=== PATIENT | female | born 1940 | race Caucasian/White ===

== ENCOUNTER 2023-12-08 04:20 | Emergency (ER) | payer OTHER, SELFPAY ==
[2023-12-08 04:26] VITALS: BMI 19.7
[2023-12-08 04:37] VITALS: BP 173/65
[2023-12-08 05:00] VITALS: BP 187/69
[2023-12-08 05:03] LABS: % Basophils 0.5 % (0-2); % Eosinophils 1.3 % (0-6); % Immature Granulocytes 0.4 % (0-0.5); % Lymphocytes 25.1 % (20.5-51.1); % Neutrophils 64.7 % (42.2-75.2); Absolute Eosinophils 0.1 10^3/uL (0-0.7); Absolute Lymphocytes 1.4 10^3/uL (1.2-3.4); Absolute Monocytes 0.4 10^3/uL (0.1-0.6); Absolute Neutrophils 3.6 10^3/uL (1.4-6.5); Hematocrit 35.5 % (37.0-47.0); Hemoglobin 12.8 g/dL (12.0-16.0); Mean Corp Hgb Conc. 36.1 g/dL (33.0-37.0); Mean Corpuscular Hgb 34.5 pg (27.0-31.0); Mean Corpuscular Volume 95.7 fL (81.0-99.0); Mean Platelet Volume 9.4 fL (7.4-10.4); Nucleated Red Blood Cells % 0 %; Platelet Count 313 10^3/uL (130-400); Red Blood Cell Count 3.71 10^6/uL (4.20-5.40); Red Cell Dist. Width 12.6 % (11.5-14.5); White Blood Cell Count 5.5 10^3/uL (4.8-10.8)
[2023-12-08 05:21] LABS: ALT (SGPT) 18 U/L (0-35); AST (SGOT) 34 U/L (14-36); Albumin 3.7 g/dl (3.5-5.0); Alkaline Phosphatase 96 U/L (38-126); Blood Urea Nitrogen 18 mg/dl (7-17); Calcium 9.4 mg/dl (8.4-10.2); Carbon Dioxide 20 mmol/L (22-30); Chloride 108 mmol/L (98-107); Estimated Creatinine Clearance 55 ml/min; Glucose 119 mg/dl (70-99); Potassium 3.3 mmol/L (3.5-5.1); Sodium 136 mmol/L (135-145); Total Bilirubin 0.9 mg/dl (0.2-1.3); Total Protein 6.3 g/dl (6.3-8.2); eGFR > 60.00
[2023-12-08 05:32] LABS: Troponin I < 0.012 ng/ml
[2023-12-08 05:54] LABS: Urine Albumin Negative (Neg - Trace); Urine Bilirubin Negative (Negative); Urine Character Clear (Clear); Urine Color Yellow; Urine Glucose Negative (Negative); Urine Ketone Negative (Negative); Urine Leukocyte Negative (Negative); Urine Nitrite Negative (Negative); Urine Occult Blood Negative (Negative); Urine Urobilinogen Negative (Neg - 1+)
--- NOTE | 2023-12-08 07:01 | ED.GENMED ---
History of Present Illness
General
Chief Complaint: Dizziness
Source: patient and spouse
Time Seen by Provider: 12/08/23 06:49
Travel History
Have you had any contact with someone who has COVID-19?: No
Do you have any symptoms of coronavirus? Fever > 100 degrees, chills, cough, shortness of breath, sore throat, loss of taste or smell, muscle aches, or headache?: No
History of Present Illness
History of Present Illness:
83-year-old female presents to the emergency room complaining of feeling dizzy. Patient has been having some constipation. She woke up little at night with the urge to go to the bathroom. When she got up she was feeling dizzy like she might pass
out. She never did pass out. Her lowered her to the bathroom. Patient ultimately did have a large bowel movement here in the emergency room.
Past History
Past History
ED Past Medical History: None
ED Past Surgical History: None
Social History
Tobacco: Non-smoker
Alcohol: None
Drug: None
Personal:
Living: with family
Employment: Not employed
Phy Exam
Physical Exam
Physical Exam:
General: Awake, Alert, Oriented X3. No acute distress.
Vitals: unremarkable
Head: Atraumatic
Eyes: Pupils equal, EOMI
Throat: Airway intact, no exudates, mildly dry mucosa
Neck: Trachea midline
Lungs: Clear and equal b/l
Heart: Regular rate, no murmurs
Abd: Soft, Nontender, No pulsatile mass
Neuro: Nonfocal
Skin: Warm, dry, no rash
Extremities: pulses equal b/l, no edema
Course
Orders/Labs/Results
Orders:
Orders
12/08/23 04:22
EKG [Electrocardiogram (*1)] Urgent
Reason for Study: Vertigo / Dizzy
EKG- Treatment ONCE
12/08/23 04:53
Complete Blood Count/With Diff Urgent
Comprehensive Metabolic Panel Urgent
Troponin I Urgent
12/08/23 05:30
Bladder Scan- Treatment ONCE
Straight cath- Treatment ONCE
12/08/23 05:40
Urine Reflex Culture from UA [Urinalysis Reflex To Culture] Urgent
Date Specimen was Collected: 12/08/23
Time Specimen was Collected: 05:39
12/08/23 07:00
0.9% Sodium Chloride 500 ml [Nss] 500 ml IV BOLUS
Potassium Chloride 10% Elixir [KCl Elixir] 40 meq PO NOW STA
Abnormal Lab Results
12/08/23
04:53
RBC 3.71 L 10^6/uL
(4.20-5.40)
Hct 35.5 L %
(37.0-47.0)
MCH 34.5 H pg
(27.0-31.0)
Potassium 3.3 L mmol/L
(3.5-5.1)
Chloride 108 H mmol/L
(98-107)
Carbon Dioxide 20 L mmol/L
(22-30)
BUN 18 H mg/dl
(7-17)
Glucose 119 H mg/dl
(70-99)
12/08/23 04:53
12/08/23 04:53
Vital Signs
Initial and Last Documented VS:
Initial Vital Signs
Temp Pulse Resp BP Pulse Ox
97.4 F 64 18 173/65 100
12/08/23 04:37 12/08/23 04:37 12/08/23 04:37 12/08/23 04:37 12/08/23 04:37
Last Documented Vital Signs
Temp Pulse Resp BP Pulse Ox
97.4 F 76 20 180/81 100
12/08/23 04:37 12/08/23 09:50 12/08/23 09:50 12/08/23 09:50 12/08/23 09:50
MDM/Problems Addressed
Differential Diagnosis Includes:
Dehydration, vasovagal episode, electrode abnormality
MDM/Problems Addressed:
Patient appears quite stable on evaluation. Vital signs are good. Labs show mild prerenal azotemia and mild hypokalemia. 500 cc normal saline given as well as 40 mill equivalents of p.o. potassium. Patient ambulated without difficulty. Patient
stable for discharge home. Prescription for Sachin sent. Discussed blood pressure medications and primary care provider.
*Pulse Oximetry
Patient hypoxic: no
*EKG
Interpreted by ED Provider?: Yes
Interpretation: normal
Heart Rate: 64
Rate: normal
Rhythm: sinus
[place]: normal axis
Interval: normal interval
QRS Pattern: normal QRS
Ischemia: no ischemia
*Spectrographic Analyst Interpretation
Rate: normal
Interpretation: normal
Heart Rate: 64
Rhythm: sinus
*Critical Care Note
Total Time (30-74mins, 75-104mins- exclusive of procedures): Not Applicable
ED Attending Note
-
Portions of this chart may have been created with voice recognition software.� Occasional wrong word or��sound alike� substitutions may have occurred due to the inherent limitations of voice recognition software.
Discharge Plan
Departure
Patient Disposition: Home (Routine Discharge)
Date of Disposition: 12/08/23
Time of Disposition: 08:17
Patient with high blood pressure during this ER visit?: Yes
Condition: Good
Discharge Problem:
Dizziness, Dehydration, Acute hypokalemia
Instructions: Dehydration, Adult ED
Prescriptions:
New
potassium chloride 20 mEq tablet,ER particles/crystals
20 meq PO ONCE Qty: 14 0RF
No Action
hydrochlorothiazide 50 MG tablet
50 mg PO DAILY
cephalexin 500 MG capsule
500 mg PO BID
Eletone
1 applic PO BID
Hydrocortisone 2.5% Cream:
1 applic topical BID
Multivitamin
1 tab PO DAILY
Potassium
1 tab PO DAILY
Patient Comments:
unsure of dose
hydrocortisone 1 APPLIC cream
1 applic topical BID Qty: 1 0RF
Referrals:
UNKNOWN - PT NOT,INTERVIEWE [Family Provider] -
Activity Restrictions/Additional Instructions:
Take potassium once a day. Please follow up with your primary care doctor to discuss your blood pressure medications.
Interventions
Interventions:
*Risk Screen - Suicide Last Done: 12/08/23 04:37
*General Assessment Last Done: 12/08/23 04:37
*Neglect/Abuse Screening Last Done: 12/08/23 04:37
ED- Fall Risk Assessment Last Done: 12/08/23 04:45
*ED COVID-19 Vaccine History Last Done: 12/08/23 04:37
*Nursing Disposition Last Done: 12/08/23 09:50
ED- Neurological Assessment Last Done: 12/08/23 04:45
ED- Cardiac Assessment Last Done: 12/08/23 04:45
ED Swallowing Screen Last Done: 12/08/23 07:32
Discharge Date and Time
Discharge Date/Time: 12/08/23 10:02
[2023-12-08] MEDS: NSS 500 IV (07:30)
[2023-12-08] MEDS: KCL ELIXIR 40 MEQ PO (07:30)
[2023-12-08 07:34] VITALS: BP 183/76
[2023-12-08 08:50] VITALS: BP 180/81
[2023-12-08 09:50] VITALS: BP 180/81
== END 2023-12-08 10:02 | disposition home or self-care (01) ==
LOC: EMR 04:20
PROVIDERS: Emergency Medicine; EMERGENCY PHYSICIAN Emergency Medicine
DX: R42 Dizziness and giddiness (principal); E86.0 Dehydration; E87.6 Hypokalemia; K59.00 Constipation, unspecified
CPT/HCPCS: 99283; 96360; 80053; 81003; 84484; 85025; 93005